=== PATIENT | female | born 1990 | race Caucasian/White ===

== ENCOUNTER 2023-04-05 06:55 | Day surgery (SDC) | payer BC ==
[2023-04-05 08:02] LABS: Fetal Membranes Rupture No Membranes Rupture (No Rupture)
[2023-04-05] MEDS ORDERED: hydrALAZINE 20 MG/ML VIAL SLOW IVP PRN (08:51)
== END 2023-04-05 09:00 | disposition home or self-care (01) ==
LOC: CSHLD/OP 06:55
PROVIDERS: ATTEND Student in an Organized Health Care Education/Training Program
DX: Z03.71 Encounter for suspected problem with amniotic cavity and membrane ruled out (principal); O47.03 False labor before 37 completed weeks of gestation, third trimester; O99.343 Other mental disorders complicating pregnancy, third trimester; F41.9 Anxiety disorder, unspecified; Z79.899 Other long term (current) drug therapy; Z3A.36 36 weeks gestation of pregnancy
CPT/HCPCS: 84112; 99283

== ENCOUNTER 2023-04-12 11:15 | Day surgery (SDC) | payer BC | END 2023-04-12 14:44 | disposition home or self-care (01) | LOC: CSHLD/OP 11:15 | PROVIDERS: ATTEND Student in an Organized Health Care Education/Training Program | DX: O36.8130 Decreased fetal movements, third trimester, not applicable or unspecified (principal); Z3A.37 37 weeks gestation of pregnancy | CPT/HCPCS: 76819; 99282 ==

== ENCOUNTER 2023-04-22 05:30 | Inpatient (IN) | payer BC ==
[2023-04-23] MEDS ORDERED: ePHEDrine Sulfate 50 MG/10 ML VIAL ONE (08:00)
[2023-04-23] MEDS ORDERED: Bupivacaine/Epinephrine 0.25% 30 ML VIAL ONE (08:00)
[2023-04-23] MEDS ORDERED: Lidocaine 1% (PF) 30 ML VIAL SC PRN (10:03)
[2023-04-23] MEDS ORDERED: Carboprost 250 MCG/ML AMP IM PRN (10:03)
[2023-04-23] MEDS ORDERED: Ondansetron PF 4 MG/2 ML Vial IVP PRN ×3 (10:03→21:45)
[2023-04-23] MEDS ORDERED: HYDROcodone/Acetaminophen 5/325 mg Tablet PO PRN ×3 (10:03→21:45)
[2023-04-23] MEDS ORDERED: Ibuprofen 800 MG TAB PO PRN (10:03)
[2023-04-23] MEDS ORDERED: fentaNYL 50 mcg/mL 1 mL Vial SLOW IVP PRN (10:03)
[2023-04-23] MEDS ORDERED: Misoprostol 200 MCG TAB PR PRN (10:03)
[2023-04-23] MEDS ORDERED: Acetaminophen 500 MG TAB PO PRN (10:03)
[2023-04-23] MEDS ORDERED: Diphenoxylate HCl/Atropine Tablet PO PRN (10:03)
[2023-04-23] MEDS ORDERED: hydrALAZINE 20 MG/ML VIAL SLOW IVP PRN ×2 (10:03→21:45)
[2023-04-23] MEDS ORDERED: Promethazine HCl 25 MG/ML VIAL IM PRN ×3 (10:03→21:45)
[2023-04-23] MEDS ORDERED: Methylergonovine 0.2 MG/ML VIAL IM PRN (10:03)
[2023-04-23] MEDS ORDERED: NS w/ Oxytocin 30 units 500 ML IV SCH ×2 (10:15)
[2023-04-23 11:00] VITALS: BMI 29.7
[2023-04-23] MEDS: Lactated Ringer's 1,000 ML IV SCH ×2 (11:28→14:50)
[2023-04-23 12:03] LABS: Hemoglobin 11.8 g/dL (12.0-15.5); Mean Corpuscular Hemoglobin 27.3 pg (27.0-33.0); Mean Corpuscular Volume 79.7 fl (81.6-98.3); Red Blood Cell (RBC) Count 4.33 10x6/uL (3.90-5.03)
[2023-04-23 12:04] LABS: Mean Corpuscular HGB CONC 34.2 g/dL (32.0-36.0); Mean Platelet Volume 10.7 fl (7.4-10.4); Platelet Count 306 10x3/uL (130-400); RBC Distribution Width 12.7 % (11.5-14.5)
[2023-04-23] MEDS ORDERED: Misoprostol 100 MCG TAB ONE (12:31)
[2023-04-23 12:48] LABS: HBSAg Index 0.18 S/CO (0-0.99); Hep B Surf Ag - L&D Non-Reactive S/CO (NonReactive)
[2023-04-23 12:49] LABS: Syphilis Antibody Nonreactive (Nonreactive); Syphilis Antibody Index 0.04 S/CO (<1.00 Non-Reactive)
[2023-04-23] MEDS ORDERED: fentaNYL/Ropivacaine Epidural 100 ML ONE (13:12)
[2023-04-23] MEDS ORDERED: Lactated Ringer's 500 ML IV PRN (15:03)
[2023-04-23] MEDS ORDERED: Moisturizing Cream (Eucerin) 113 GM JAR TOP PRN (15:03)
[2023-04-23] MEDS ORDERED: diphenhydrAMINE 50 MG/ML VIAL IVP PRN (15:03)
[2023-04-23] MEDS ORDERED: ePHEDrine Sulfate 50 MG/10 ML VIAL SLOW IVP PRN (15:03)
[2023-04-23] MEDS ORDERED: Acetaminophen 325 MG TAB PO PRN (15:03)
[2023-04-23] MEDS ORDERED: Naloxone HCl 0.4 mg/ml Vial IVP PRN ×2 (15:03)
[2023-04-23] MEDS ORDERED: Communication Order-Pharmacy FS SCH (15:15)
[2023-04-23] MEDS ORDERED: fentaNYL 2 mcg/Ropivacaine 0.2% Epidural 100 ML CADD EPIDURAL SCH (15:15)
[2023-04-23] MEDS ORDERED: Milk Of Magnesia 30 ML UDCUP PO PRN (21:45)
[2023-04-23] MEDS ORDERED: Lanolin Ointment 7 GM TUBE TOP PRN (21:45)
[2023-04-23] MEDS ORDERED: Bisacodyl 10 MG SUPP PR PRN (21:45)
[2023-04-23] MEDS ORDERED: Boostrix 0.5 ML (Tdap) VIAL (>/=7 yrs of age) IM ONE (21:45)
[2023-04-23] MEDS ORDERED: Preparation H Ointment 28 GM TUBE PR PRN (21:45)
[2023-04-23] MEDS ORDERED: diphenhydrAMINE 25 MG CAP PO PRN (21:45)
[2023-04-23] MEDS ORDERED: Benzocaine-Menthol 82.5 ML CAN TOP PRN (21:45)
[2023-04-23] MEDS ORDERED: Docusate 100 MG CAP PO SCH (22:00)
[2023-04-23] MEDS: Ibuprofen 800 MG TAB PO SCH (22:22)
[2023-04-24] MEDS: Ibuprofen 800 MG TAB PO SCH ×2 (05:43→14:09)
[2023-04-24] MEDS: Ferrous Sulfate 325 MG TAB PO SCH ×2 (07:12→16:56)
[2023-04-24] MEDS ORDERED: Prenatal Vitamin 1 TAB PO SCH (09:00)
[2023-04-24] MEDS ORDERED: Docusate 100 MG CAP PO SCH (09:00)
[2023-04-24 21:21] VITALS: BP 113/62; TEMP 97.8
== END 2023-04-24 21:05 | disposition home or self-care (01) | DRG 807 ==
LOC: CSHLD 04-23 10:38 → CSHPP 04-23 21:35
PROVIDERS: ADMIT Student in an Organized Health Care Education/Training Program; ATTEND Student in an Organized Health Care Education/Training Program
PROC: 10907ZC Drainage of Amniotic Fluid, Therapeutic from Products of Conception, Via Natural or Artificial Opening (ICD-10-PCS; principal; 2023-04-23)
PROC: 10E0XZZ Delivery of Products of Conception, External Approach (ICD-10-PCS; 2023-04-23)
PROC: 0HQ9XZZ Repair Perineum Skin, External Approach (ICD-10-PCS; 2023-04-23)
DX: O70.0 First degree perineal laceration during delivery (principal); Z37.0 Single live birth; Z3A.39 39 weeks gestation of pregnancy
CPT/HCPCS: 85027; 86780; 86850; 86900; 86901; 87340; J2405; J2590; J7120